=== PATIENT | female | born 1955 | race Caucasian/White ===

== ENCOUNTER 2017-05-14 07:15 | Emergency (ER) | payer OTHER ==
[2017-05-14] MEDS ORDERED: ENALAPRILAT 1.25 MG/ML VIAL IV ONE (08:08)
[2017-05-14 08:12] LABS: Potassium 3.7 mEq/L (3.6-5.0)
[2017-05-14 08:23] LABS: Absolute Monocytes 0.4 K/uL (0.1-1.3); Absolute Neutrophil 4.1 K/uL (1.8-8.0); Basophils % 0.6 % (0-1.3); Eosinophils % 2.4 % (0-4.4); Hematocrit 40.8 % (36.0-45.0); Lymphocytes % 38.7 % (15.3-44.8); MCH 30.4 pg (27.0-35.0); MCV 88.8 fL (80-100); MPV 7.5 fL (7.6-11.3); Monocytes % 5.8 % (3.3-12.3)
--- NOTE | 2017-05-14 08:48 | EKG ---
Test Date: 2017-05-14 Test Time: 07:39:10 Software Licensing Specialist: WILLIAN MEASUREMENT RESULTS: Intervals: Rate: 71 AR: 144 QRSD: 72 QT: 414 QTc: 449 [place]: P: 80 AR: 144 QRS: 62 T: 35 INTERPRETIVE STATEMENTS: Normal sinus rhythm Normal ECG Compared to ECG 03/02/2014 17:15:30 Sinus bradycardia no longer present Electronically Signed On 05-14-17 08:48:22 CDT by Maximus Houser
--- NOTE | 2017-05-14 09:05 | RAD REPORT ---
EXAM DESCRIPTION: RAD - Chest Pa And Lat (2 Views) - 05/14/2017 8:28 am CLINICAL HISTORY: Progressive chest pain COMPARISON: Rib series March 2014, portable chest April 2009 TECHNIQUE: PA and lateral views of the chest were obtained. FINDINGS: The lungs are fibrotic without an acute mass, infiltrate or failure. There is minimal prog ression of the fibrosis since 2009. Apical thickening is present and stable. Heart size is normal a nd central vasculature is within normal limits. No pleural effusion or pneumothorax seen. Osteopeni c changes are present. Kyphosis is slightly accentuated but no compression fracture seen. No aortic a bnormality. IMPRESSION: Interstitial fibrotic changes are present, mildly progressive from 2009, with no focal m ass, consolidation or failure. Osteopenic and degenerative bony change with no acute finding suspected.
--- NOTE | 2017-05-14 09:26 | RAD REPORT ---
EXAM DESCRIPTION: CT - Thorax W/ Con - 05/14/2017 9:11 am CLINICAL HISTORY: Worsening chest pain, breast augmentation COMPARISON: CT imaging April 2009, chest examination May 14, 2017. TECHNIQUE: Dynamically enhanced 5 mm thick images of the chest were obtained during administration o f 100 mL non-ionic IV contrast. All CT scans are performed using dose optimization technique as appropriate and may include automated exposure control or mA/KV adjustment according to patient size. FINDINGS: Mild apical scarring changes are present similar to the prior study. No infiltrate or mass of the lung parenchyma. No interstitial thickening or edema seen as an acute process. Scarring godinez es are present in both posterior gutters. No pleural thickening or pleural effusion. No pneumothorax. No chest wall mass or abnormal axillary lymphadenopathy. No abnormal mediastinal or hilar mass or lymphadenopathy seen. Ascending thoracic aorta is 4.1 cm in diameter. This is not substantially different from 2010. No acute aortic finding identifiable on this study. No acute finding of the great vessel origins off of the aortic arch. Pulmonary artery show no suspicious findings. Bilateral breast augmentation in place with no suspicious finding compared to prior imaging. IMPRESSION: No mass, infiltrate or acute lung parenchymal process. Bilateral apex and lung base scar ring changes are present. Ascending aorta is dilated at 4.1 cm but no acute component seen and no measurable change in size sin ce April 2009.
--- NOTE | 2017-05-14 09:39 | ER ---
Nurse's Notes [facility] Name: Suzie Houser Age: 61 yrs Sex: Female : 1955 Arrival Date: 05/14/2017 Time: 07:17 Bed 5 Private MD: Diagnosis: Chest pain on breathing;Essential (primary) hypertension Presentation: 05/14 07:26 Presenting complaint: Patient states: chest pain that has been worsening over the past ss week. Transition of care: patient was not received from another setting of care. Onset of symptoms was May 07, 2017. Care prior to arrival: None. 07:26 Method Of Arrival: Ambulatory ss 07:26 Acuity: PHANI 3 ss Historical: - Allergies: 07:29 No Known Allergies; ss - Home Meds: : aspirin 81 mg Oral TbEC 1 tab once daily [Active]; ss - PMHx: 07:29 Hypertension; High Cholesterol; aortic aneurysm; ss - PSHx: 07:29 breast augmentation; Hysterectomy; back sx; Appendectomy; ss - Immunization history:: Adult Immunizations unknown. - Social history:: Smoking status: Patient uses tobacco products, smokes one-half pack cigarettes per day. Screenin:49 Abuse screen: Denies threats or abuse. Denies injuries from another. Nutritional lk1 screening: No deficits noted. Tuberculosis screening: No symptoms or risk factors identified. Fall Risk None identified. Assessment: 07:25 General: Appears in no apparent distress. Behavior is calm, cooperative, appropriate lk1 for age. Pain: Complains of pain in mid-sternal area Pain radiates to anterior aspect of left shoulder Pain currently is 10 out of 10 on a pain scale. Quality of pain is described as aching, Pain began 8 days ago Aggravated by exercise, increased activity. Neuro: Level of Consciousness is awake, alert, obeys commands, Oriented to person, place, time, situation, Gait is steady, Speech is normal, Facial symmetry appears normal, Pupils are PERRLA. Cardiovascular: Heart tones S1 S2 present Capillary refill is brisk Patient's skin is warm and dry. Respiratory: Airway is patent Breath sounds are clear bilaterally. GI: Abdomen is flat, non-distended, Bowel sounds present X 4 quads. : No signs and/or symptoms were reported regarding the genitourinary system. EENT: No signs and/or symptoms were reported regarding the EENT system. 09:03 Reassessment: Patient appears in no apparent distress at this time. Patient and/or hb family updated on plan of care and expected duration. Pain level reassessed. Patient is alert, oriented x 3, equal unlabored respirations, skin warm/dry/pink. Vital Signs: 07:29 BP 198 / 115; Pulse 78; Resp 18; Pulse Ox 99% on R/A; Weight 45.36 kg; Height 5 ft. 5 ss in. (165.10 cm); Pain 9/10; 07:53 BP 187 / 110; Pulse 66; Resp 18; Temp 98.4(O); Pulse Ox 99% on R/A; Pain 10/10; lk1 08:15 BP 168 / 107; Pulse 59; Resp 16; Pulse Ox 98% on R/A; lk1 09:01 BP 146 / 94; Pulse 55; Resp 16; Pulse Ox 98% on R/A; lk1 07:29 Body Mass Index 16.64 (45.36 kg, 165.10 cm) ED Course: 07:17 Patient arrived in ED. as 07:19 Jesús Christianson MD is Attending Physician. gs 07:28 Triage completed. ss 07:29 Arm band placed on right wrist. ss 07:30 Maru Flores, CUBA is Primary Nurse. lk1 07:30 Inserted saline lock: 20 gauge in right antecubital area, using aseptic technique. lk1 Blood collected. Patient maintains SpO2 saturation greater than 95% on room air. 07:48 EKG done, by formula technician. reviewed by Jesús Christianson MD. tc 07:51 Patient has correct armband on for positive identification. Placed in gown. Bed in low lk1 position. Call light in reach. Side rails up X 1. campus monitor on. Pulse ox on. NIBP on. 08:20 Patient moved to radiology via wheelchair. kw1 08:24 X-ray completed. Patient tolerated procedure well. Patient moved back from radiology. kw1 08:28 XRAY Chest Pa And Lat (2 Views) In Process Unspecified. EDMS 09:09 CT completed. Patient tolerated procedure well. Patient moved to CT via wheelchair. jg1 Patient moved back from CT. 09:10 CT Chest W/ Con In Process Unspecified. EDMS 10:07 No provider procedures requiring assistance completed. IV discontinued, intact, hb bleeding controlled, No redness/swelling at site. Pressure dressing applied. Administered Medications: 07:45 Drug: Enalaprilat 1.25 mg Route: IV; Rate: bolus; Site: right antecubital; hb Outcome: 09:38 Discharge ordered by . 10:07 Discharged to home ambulatory. hb 10:07 Condition: stable 10:07 Discharge instructions given to patient, Instructed on discharge instructions, follow up and referral plans. medication usage, Demonstrated understanding of instructions, follow-up care, medications. 10:08 Patient left the ED. hb Signatures: Dispatcher [employer] EDMS Hillary Hammonds Amelia as Smirch, Shelby, RN RN Oksana Feldman, boat tender EKG [facility] Maru Flores RN RN lk1 Laura Jones RN RN Jesús Christianson MD MD gs Wilhelm, Rachel kw1 Corrections: (The following items were deleted from the chart) 09:05 09:02 BP 97 / 73; Pulse 90bpm; Resp 18bpm; Pulse Ox 100% RA; hb hb
--- NOTE | 2017-05-14 09:39 | EDPHYS ---
Physician Documentation [facility] Name: Suzie Houser Age: 61 yrs Sex: Female : 1955 Arrival Date: 05/14/2017 Time: 07:17 Bed 5 Private MD: ED Physician Jesús Christianson HPI: 05/14 08:31 This 61 yrs old Female presents to ER via Ambulatory with complaints of Chest gs Pain. 08:31 The patient or guardian reports chest pain that is located primarily in the substernal gs area. Onset: 1 week(s) ago. The pain does not radiate. Associated signs and symptoms: Pertinent negatives: diaphoresis, shortness of breath. The chest pain is described as dull. Duration: The patient or guardian reports a single episode, that is still ongoing. Modifying factors: the symptoms are aggravated by movement, twisting torso, hugging and bra. Historical: - Allergies: 07:29 No Known Allergies; ss - Home Meds: 07:29 aspirin 81 mg Oral TbEC 1 tab once daily [Active]; ss - PMHx: 07:29 Hypertension; High Cholesterol; aortic aneurysm; ss - PSHx: 07:29 breast augmentation; Hysterectomy; back sx; Appendectomy; ss - Immunization history:: Adult Immunizations unknown. - Social history:: Smoking status: Patient uses tobacco products, smokes one-half pack cigarettes per day. ROS: 08:31 All other systems are negative. gs Exam: 08:31 Head/Face: Normocephalic, atraumatic. Eyes: Pupils equal round and reactive to light, gs extra-ocular motions intact. Lids and lashes normal. Conjunctiva and sclera are non-icteric and not injected. Cornea within normal limits. Periorbital areas with no swelling, redness, or edema. ENT: Nares patent. No nasal discharge, no septal abnormalities noted. Tympanic membranes are normal and external auditory canals are clear. Oropharynx with no redness, swelling, or masses, exudates, or evidence of obstruction, uvula midline. Mucous membranes moist. Neck: Trachea midline, no thyromegaly or masses palpated, and no cervical lymphadenopathy. Supple, full range of motion without nuchal rigidity, or vertebral point tenderness. No Meningismus. Chest/axilla: Normal chest wall appearance and motion. Nontender with no deformity. No lesions are appreciated. Cardiovascular: Regular rate and rhythm with a normal S1 and S2. No gallops, murmurs, or rubs. Normal PMI, no JVD. No pulse deficits. Respiratory: Lungs have equal breath sounds bilaterally, clear to auscultation and percussion. No rales, rhonchi or wheezes noted. No increased work of breathing, no retractions or nasal flaring. Abdomen/GI: Soft, non-tender, with normal bowel sounds. No distension or tympany. No guarding or rebound. No evidence of tenderness throughout. Back: No spinal tenderness. No costovertebral tenderness. Full range of motion. Skin: Warm, dry with normal turgor. Normal color with no rashes, no lesions, and no evidence of cellulitis. MS/ Extremity: Pulses equal, no cyanosis. Neurovascular intact. Full, normal range of motion. Neuro: Awake and alert, GCS 15, oriented to person, place, time, and situation. Cranial nerves II-XII grossly intact. Motor strength 5/5 in all extremities. Sensory grossly intact. Cerebellar exam normal. Normal gait. 08:31 Constitutional: The patient appears alert, awake. 08:31 ECG was reviewed by the Attending Physician. Vital Signs: 07:29 BP 198 / 115; Pulse 78; Resp 18; Pulse Ox 99% on R/A; Weight 45.36 kg; Height 5 ft. 5 ss in. (165.10 cm); Pain 9/10; 07:53 BP 187 / 110; Pulse 66; Resp 18; Temp 98.4(O); Pulse Ox 99% on R/A; Pain 10/10; lk1 08:15 BP 168 / 107; Pulse 59; Resp 16; Pulse Ox 98% on R/A; lk1 09:01 BP 146 / 94; Pulse 55; Resp 16; Pulse Ox 98% on R/A; lk1 07:29 Body Mass Index 16.64 (45.36 kg, 165.10 cm) ss MDM: 07:29 Patient medically screened. gs 08:31 Differential diagnosis: abnormal EKG, chest wall pain, pneumonia. Data reviewed: vital gs signs, nurses notes. ED course: says off meds for bp encouraged her to restart. 09:38 Differential diagnosis: thoracic aortic disection. Response to treatment: the patient's gs symptoms have markedly improved after treatment, the patient's symptoms have resolved after treatment. 05/14 07:41 Order name: Basic Metabolic Panel; Complete Time: 08:30 gs 05/14 07:41 Order name: CBC with Diff; Complete Time: 08:30 gs 05/14 07:41 Order name: Troponin (emerg Dept Use Only); Complete Time: 08:30 gs 05/14 07:41 Order name: XRAY Chest Pa And Lat (2 Views); Complete Time: 09:32 gs 05/14 08:38 Order name: CT Chest W/ Con; Complete Time: 09:32 gs 05/14 07:41 Order name: EKG; Complete Time: 07:41 gs 05/14 07:41 Order name: Cardiac monitoring; Complete Time: 07:52 gs 05/14 07:41 Order name: EKG - Nurse/Tech; Complete Time: 07:52 gs 05/14 07:41 Order name: IV Saline Lock; Complete Time: 07:53 gs 05/14 07:41 Order name: Labs collected and sent; Complete Time: 07:53 gs 05/14 07:41 Order name: O2 Per Protocol; Complete Time: 07:53 gs 05/14 07:41 Order name: O2 Sat Monitoring; Complete Time: 07:53 gs EC:31 Rate is 71 beats/min. Rhythm is regular. AL interval is normal. QRS interval is normal. gs T waves are Normal. No ST changes noted. Clinical impression: Abnormal EKG without significant change. Interpreted by me. Administered Medications: 07:45 Drug: Enalaprilat 1.25 mg Route: IV; Rate: bolus; Site: right antecubital; Disposition: 05/14/17 09:38 Discharged to Home. Impression: Chest pain on breathing, Essential (primary) hypertension. - Condition is Stable. - Discharge Instructions: Nonspecific Chest Pain, Hypertension. - Medication Reconciliation Form, Thank You Letter, Antibiotic Education, Prescription Opioid Use form. - Follow up: Private Physician; When: 2 - 3 days; Reason: Re-evaluation by your physician. Signatures: Dispatcher [employer] Kitty Huerta RN RN Laura Jones RN RN Jesús Christianson MD MD
[2017-05-14 10:17] VITALS: TEMP 98.4
[2017-05-14 10:18] VITALS: O2SAT 98
[2017-05-14 10:19] VITALS: BP 146/94
== END 2017-05-14 10:08 | disposition home or self-care (01) ==
LOC: ER 07:15
DX: I10 Essential (primary) hypertension (principal); F17.210 Nicotine dependence, cigarettes, uncomplicated; Z79.82 Long term (current) use of aspirin
CPT/HCPCS: 36415; 71046; 71260; 80048; 84484; 85025; 93005; 96374; 99285; Q9967

== ENCOUNTER 2017-09-03 16:25 | Emergency (ER) | payer OTHER ==
--- NOTE | 2017-09-03 17:27 | RAD REPORT ---
EXAM DESCRIPTION: RAD - Ankle Left 3 View - 09/03/2017 5:21 pm CLINICAL HISTORY: PAIN Fall COMPARISON: No comparisons FINDINGS: The bones are mildly demineralized. No acute fracture or dislocation is seen.
--- NOTE | 2017-09-03 17:27 | RAD REPORT ---
EXAM DESCRIPTION: RAD - Pelvis - 09/03/2017 5:21 pm CLINICAL HISTORY: PAIN Fall COMPARISON: No comparisons FINDINGS: The bones are mildly demineralized. No acute fracture, dislocation or evidence of AVN is s een. If pain persists or the patient has difficulty with weight-bearing, followup MR imaging may be c onsidered for further assessment.
[2017-09-03] MEDS ORDERED: HYDROCODONE/APAP 5/325 MG TAB ONE (17:55)
--- NOTE | 2017-09-03 18:46 | EDPHYS ---
Physician Documentation [facility] Name: Suzie Houser Age: 61 yrs Sex: Female : 1955 Arrival Date: 09/03/2017 Time: 16:26 Bed 13 Private MD: Fortunato Pereira ED Physician Jayant Rodriguez HPI: 09/03 18:00 This 61 yrs old Female presents to ER via Ambulatory with complaints of Hip pm1 Pain. 18:00 The patient or guardian reports pain. that occurred at home, sustained from a fall, pm1 There is no obvious deformity, The patient is able to self ambulate. The patient is able to bear their full body weight. There is no radiation of the patient's discomfort. The complaints affect the right iliac crest and left foot. Onset: The symptoms/episode began/occurred 2 day(s) ago. Modifying factors: The symptoms are alleviated by nothing, the symptoms are aggravated by touching area and walking on left foot. Associated signs and symptoms: Loss of consciousness: the patient experienced no loss of consciousness, Pertinent negatives: No head injury, headache, neck pain. Severity of symptoms: in the emergency department the symptoms are unchanged. Patient was drinking too much and fell on her left side. The same night she rolled off the bed. Patient presenting with pain to arch of left foot and lateral aspect of left foot and right iliac crest. Historical: - Allergies: 16:44 Codeine; hb - Home Meds: 16:44 aspirin 81 mg Oral TbEC 1 tab once daily [Active]; hb - PMHx: 16:44 aortic aneurysm; High Cholesterol; Hypertension; hb - PSHx: 16:44 breast augmentation; Hysterectomy; back sx; Appendectomy; hb - Immunization history:: Adult Immunizations up to date. - Social history:: Smoking status: Patient uses tobacco products, denies chronic smoking, but will smoke occasionally. - Ebola Screening: : No symptoms or risks identified at this time. ROS: 18:00 Constitutional: Negative for fever, chills, and weight loss, Eyes: Negative for injury, pm1 pain, redness, and discharge, ENT: Negative for injury, pain, and discharge, Neck: Negative for injury, pain, and swelling, Cardiovascular: Negative for chest pain, palpitations, and edema, Respiratory: Negative for shortness of breath, cough, wheezing, and pleuritic chest pain, Abdomen/GI: Negative for abdominal pain, nausea, vomiting, diarrhea, and constipation, Back: Negative for injury and pain. 18:00 Skin: Negative for injury, rash, and discoloration, Neuro: Negative for headache, weakness, numbness, tingling, and seizure. 18:00 MS/extremity: Positive for pain, of the left foot and left hip. Exam: 18:00 Constitutional: This is a well developed, well nourished patient who is awake, alert, pm1 and in no acute distress. Head/Face: Normocephalic, atraumatic. Eyes: Pupils equal round and reactive to light, extra-ocular motions intact. Lids and lashes normal. Conjunctiva and sclera are non-icteric and not injected. Cornea within normal limits. Periorbital areas with no swelling, redness, or edema. ENT: Nares patent. No nasal discharge, no septal abnormalities noted. Tympanic membranes are normal and external auditory canals are clear. Oropharynx with no redness, swelling, or masses, exudates, or evidence of obstruction, uvula midline. Mucous membranes moist. Neck: Trachea midline, no thyromegaly or masses palpated, and no cervical lymphadenopathy. Supple, full range of motion without nuchal rigidity, or vertebral point tenderness. No Meningismus. Chest/axilla: Normal chest wall appearance and motion. Nontender with no deformity. No lesions are appreciated. Cardiovascular: Regular rate and rhythm with a normal S1 and S2. No gallops, murmurs, or rubs. Normal PMI, no JVD. No pulse deficits. Respiratory: Lungs have equal breath sounds bilaterally, clear to auscultation and percussion. No rales, rhonchi or wheezes noted. No increased work of breathing, no retractions or nasal flaring. Abdomen/GI: Soft, non-tender, with normal bowel sounds. No distension or tympany. No guarding or rebound. No evidence of tenderness throughout. Back: No spinal tenderness. No costovertebral tenderness. Full range of motion. Skin: Warm, dry with normal turgor. Normal color with no rashes, no lesions, and no evidence of cellulitis. 18:00 Musculoskeletal/extremity: Extremities: grossly normal except: noted in the lateral side of left foot and arch of left foot: tenderness, noted in the right iliac crest: tenderness, no evidence of tenderness or decreased ROM to right or left hip joint. Vital Signs: 16:43 BP 139 / 99; Pulse 100; Resp 18; Temp 97.4; Pulse Ox 100% on R/A; Weight 42.64 kg; hb Height 5 ft. 5 in. (165.10 cm); Pain 9/10; 18:26 BP 123 / 89; Pulse 61; Resp 17; Pulse Ox 98% on R/A; mb3 16:43 Body Mass Index 15.64 (42.64 kg, 165.10 cm) hb MDM: 17:27 Patient medically screened. pm1 18:44 Data reviewed: vital signs. Data interpreted: Pulse oximetry: on room air is 98 %. pm1 Interpretation: normal. Counseling: I had a detailed discussion with the patient and/or guardian regarding: the historical points, exam findings, and any diagnostic results supporting the discharge/admit diagnosis, radiology results, the need for outpatient follow up, to return to the emergency department if symptoms worsen or persist or if there are any questions or concerns that arise at home. 09/03 16:46 Order name: Pelvis XRAY; Complete Time: 17:36 09/03 16:46 Order name: Ankle Left 3 View XRAY; Complete Time: 17:36 hb 09/03 17:42 Order name: Foot Left 3 View XRAY; Complete Time: 20:15 pm1 Administered Medications: 17:53 Drug: Scotts 5 mg-325 mg 1 tabs Route: PO; mb3 19:02 Follow up: Response: No adverse reaction mb3 Disposition: 09/04 09:34 Co-signature as Attending Physician, Jayant Rodriguez MD I agree with the assessment and saima plan of care. Disposition: 09/03/17 18:46 Discharged to Home. Impression: Unspecified sprain of left foot, Contusion of hip. - Condition is Stable. - Discharge Instructions: Contusion, Foot Sprain. - Prescriptions for Tramadol 50 mg Oral Tablet - take 1 tablet by ORAL route every 8 hours as needed; 12 tablet. - Medication Reconciliation Form, Thank You Letter, Prescription Opioid Use, Work release form form. - Follow up: Emergency Department; When: As needed; Reason: Worsening of condition. Follow up: Private Physician; When: 2 - 3 days; Reason: Recheck today's complaints, Continuance of care, Re-evaluation by your physician. - Problem is new. - Symptoms have improved. Signatures: Dispatcher [employer] EDMS Jayant Rodriguez MD MD cha Marinas, Patrick, STILL WORKER HELPER STILL WORKER HELPER pm1 Laura Jones, RN RN Jean Marie Richtre RN RN mb3 Corrections: (The following items were deleted from the chart) 09/03 19:03 18:46 09/03/2017 18:46 Discharged to Home. Impression: Unspecified sprain of left foot; mb3 Contusion of hip. Condition is Stable. Forms are Medication Reconciliation Form, Thank You Letter, Antibiotic Education, Prescription Opioid Use. Follow up: Emergency Department; When: As needed; Reason: Worsening of condition. Follow up: Private Physician; When: 2 - 3 days; Reason: Recheck today's complaints, Continuance of care, Re-evaluation by your physician. Problem is new. Symptoms have improved. pm1
--- NOTE | 2017-09-03 18:46 | ER ---
Nurse's Notes [facility] Name: Suzie Houser Age: 61 yrs Sex: Female : 1955 Arrival Date: 09/03/2017 Time: 16:26 Bed 13 Private MD: Fortunato Pereira Diagnosis: Unspecified sprain of left foot;Contusion of hip Presentation: 09/03 16:40 Presenting complaint: Patient states: Right hip and left ankle pain after fall from hb standing 2 days ago. Pt report she had too many margaritas and tripped and landed on her right side. Negative LOC. Denies other injuries. Ambulated to triage with steady gait. Transition of care: patient was not received from another setting of care. Onset of symptoms was August 31, 2017. Risk Assessment: Do you want to hurt yourself or someone else? Patient reports no desire to harm self or others. Initial Sepsis Screen: Does the patient meet any 2 criteria? No. Patient's initial sepsis screen is negative. Does the patient have a suspected source of infection? No. Patient's initial sepsis screen is negative. Care prior to arrival:. Care prior to arrival: None. 16:40 Method Of Arrival: Ambulatory hb 16:40 Acuity: PHANI 4 hb Triage Assessment: 19:03 General: Behavior is calm, cooperative, appropriate for age. mb3 Historical: - Allergies: 16:44 Codeine; hb - Home Meds: 16:44 aspirin 81 mg Oral TbEC 1 tab once daily [Active]; hb - PMHx: 16:44 aortic aneurysm; High Cholesterol; Hypertension; hb - PSHx: 16:44 breast augmentation; Hysterectomy; back sx; Appendectomy; hb - Immunization history:: Adult Immunizations up to date. - Social history:: Smoking status: Patient uses tobacco products, denies chronic smoking, but will smoke occasionally. - Ebola Screening: : No symptoms or risks identified at this time. Screenin:00 Abuse screen: Denies threats or abuse. Nutritional screening: No deficits noted. mb3 Tuberculosis screening: No symptoms or risk factors identified. Fall Risk Fall in past 12 months (25 points). Secondary diagnosis (15 points) No IV (0 pts). Ambulatory Aid- Furniture (30 pts.). Gait- Weak (10 pts.). Mental Status- Oriented to own ability (0 pts). Total Farris Fall Scale indicates High Risk Score (45 or more points). Fall prevention measures have been instituted. Side Rails Up X 2 Placed Close to Nursing Station Frequent Obs/Assessments Occuring Family Present and informed to notify staff if the need to leave the bedside As available patient and family educated on Fall Prevention Program and Strategies. Assessment: 17:54 General: Appears distressed, uncomfortable. Pain: Complains of pain in left lateral mb3 ankle, left medial ankle and back. Neuro: No deficits noted. Cardiovascular: No deficits noted. Respiratory: No deficits noted. Airway is patent Respiratory effort is even, unlabored, Respiratory pattern is regular, symmetrical, Breath sounds are clear bilaterally. GI: No deficits noted. Abdomen is flat, Bowel sounds present X 4 quads. Abd is soft and non tender X 4 quads. : No signs and/or symptoms were reported regarding the genitourinary system. EENT: No signs and/or symptoms were reported regarding the EENT system. Derm: No signs and/or symptoms reported regarding the dermatologic system. Musculoskeletal: Reports lower back pain, and left ankle pain since falling this weekend. 18:28 Reassessment: Patient and/or family updated on plan of care and expected duration. Pain mb3 level reassessed. Patient is alert, oriented x 3, equal unlabored respirations, skin warm/dry/pink. Patient states feeling better. Vital Signs: 16:43 BP 139 / 99; Pulse 100; Resp 18; Temp 97.4; Pulse Ox 100% on R/A; Weight 42.64 kg; hb Height 5 ft. 5 in. (165.10 cm); Pain 9/10; 18:26 BP 123 / 89; Pulse 61; Resp 17; Pulse Ox 98% on R/A; mb3 16:43 Body Mass Index 15.64 (42.64 kg, 165.10 cm) hb ED Course: 16:26 Patient arrived in ED. as 16:27 Fortunato Pereira MD is Private Physician. as 16:43 Triage completed. hb 16:44 Arm band placed on left wrist. hb 17:19 X-ray completed. Patient tolerated procedure well. Patient moved back from radiology. sw 17:19 Jean Marie Richter, RN is Primary Nurse. mb3 17:20 Pelvis XRAY In Process Unspecified. EDMS 17:20 Ankle Left 3 View XRAY In Process Unspecified. EDMS 17:27 Davion Pastrana NP is PHCP. pm1 17:27 Jayant Rodriguez MD is Attending Physician. pm1 17:57 X-ray completed. Portable x-ray completed in exam room. Patient tolerated procedure bb2 well. 17:58 Foot Left 3 View XRAY In Process Unspecified. EDMS 19:03 Patient has correct armband on for positive identification. mb3 19:03 No provider procedures requiring assistance completed. Patient did not have IV access mb3 during this emergency room visit. Administered Medications: 17:53 Drug: [place] 5 mg-325 mg 1 tabs Route: PO; mb3 19:02 Follow up: Response: No adverse reaction mb3 Outcome: 18:46 Discharge ordered by . pm1 19:02 Discharged to home ambulatory, with family. mb3 19:02 Condition: stable 19:02 Discharge instructions given to patient, Instructed on discharge instructions, follow up and referral plans. Demonstrated understanding of instructions, follow-up care. 19:03 Patient left the ED. mb3 Signatures: Dispatcher [employer] EDMS Emi Knox Shannon Davion Pastrana, [facility] pm1 Laura Jones, RN RN Eli Markham bb2 Jean Marie Richter, RN RN mb3
--- NOTE | 2017-09-03 19:02 | RAD REPORT ---
EXAM DESCRIPTION: RAD - Foot Left 3 View - 09/03/2017 5:59 pm CLINICAL HISTORY: Left Foot pain status post fall FINDINGS: No fracture or dislocation is seen. The bones are osteoporotic
[2017-09-03 20:08] VITALS: TEMP 97.4
[2017-09-03 20:09] VITALS: BP 123/89; O2SAT 98
== END 2017-09-03 19:03 | disposition home or self-care (01) ==
LOC: ER 16:25
DX: S93.602A Unspecified sprain of left foot, initial encounter (principal); S70.01XA Contusion of right hip, initial encounter; F17.200 Nicotine dependence, unspecified, uncomplicated; I10 Essential (primary) hypertension; W19.XXXA Unspecified fall, initial encounter; Y93.89 Activity, other specified; Y92.89 Other specified places as the place of occurrence of the external cause; Y99.9 Unspecified external cause status; Z88.6 Allergy status to analgesic agent
CPT/HCPCS: 72170; 99283

== ENCOUNTER 2019-12-14 11:01 | Emergency (ER) | payer OTHER ==
--- NOTE | 2019-12-14 12:40 | ER ---
Nurse's Notes [facility] Name: Suzie Houser Age: 64 yrs Sex: Female : 1955 Arrival Date: 12/14/2019 Time: 11:08 Bed 5 Private MD: Diagnosis: Pain in right wrist;Pain in right elbow;Hypertensive heart disease Presentation: 12/13 11:28 Chief complaint: Patient states: lost balance stepping down from living room to dining iw room, fell onto right hand/wrist, happened Sunday night. Coronavirus screen: At this time, the client does not indicate any symptoms associated with coronavirus-19. Ebola Screen: Patient negative for fever greater than or equal to 101.5 degrees Fahrenheit, and additional compatible Ebola Virus Disease symptoms Patient denies exposure to infectious person. Patient denies travel to an Ebola-affected area in the 21 days before illness onset. Initial Sepsis Screen: Does the patient meet any 2 criteria? No. Patient's initial sepsis screen is negative. Does the patient have a suspected source of infection? No. Patient's initial sepsis screen is negative. Risk Assessment: Do you want to hurt yourself or someone else? Patient reports no desire to harm self or others. Onset of symptoms was December 09, 2019. 11:28 Method Of Arrival: Ambulatory iw 11:28 Acuity: PHANI 4 iw Historical: - Allergies: 11:31 Codeine; iw - Home Meds: 11:31 aspirin 81 mg Oral chew 1 tab once daily [Active]; iw - PMHx: 11:31 aortic aneurysm; High Cholesterol; Hypertension; iw - PSHx: 11:31 breast augmentation; back sx; Hysterectomy; Appendectomy; iw - Immunization history:: Adult Immunizations up to date. - Social history:: Smoking status: Patient reports the use of cigarette tobacco products, smokes one-half pack cigarettes per day. Screenin:12 Abuse screen: Denies threats or abuse. Denies injuries from another. Nutritional ss screening: No deficits noted. Tuberculosis screening: Never had TB. Fall Risk None identified. Assessment: 12:12 General: Appears in no apparent distress. comfortable, Behavior is calm, cooperative, ss Denies fever, feeling ill, fatigue, chills. Pain: Complains of pain in R wrist and elbow Pain currently is 6 out of 10 on a pain scale. Quality of pain is described as aching, Pain began 5 days ago Is continuous. Neuro: Level of Consciousness is awake, alert, obeys commands, Oriented to person, place, time, situation, Moves all extremities. Full function. Cardiovascular: Pulses are palpable in right radial artery and left radial artery. Respiratory: Airway is patent Respiratory effort is even, unlabored, Respiratory pattern is regular, symmetrical. EENT: Oral mucosa is moist. Derm: Skin is pink, warm \T\ dry. normal. Musculoskeletal: Circulation, motion, and sensation intact. Range of motion: intact in all extremities, Swelling absent. Vital Signs: 11:28 BP 182 / 110; Pulse 74; Resp 16; Temp 98.7; Pulse Ox 99% on R/A; Weight 44.45 kg; iw Height 5 ft. 5 in. (165.10 cm); Pain 710; 11:28 Body Mass Index 16.31 (44.45 kg, 165.10 cm) iw ED Course: 11:08 Patient arrived in ED. ag5 11:30 Triage completed. iw 11:32 Arm band placed on. iw 11:35 Jayant Kulkarni PA is PHCP. cp 11:35 Nolan De La Torre MD is Attending Physician. cp 12:10 Kitty Wright RN is Primary Nurse. ss 12:12 Patient has correct armband on for positive identification. Bed in low position. Call ss light in reach. Side rails up X 1. Warm blanket given. 12:16 XRAY Wrist RIGHT 3 view In Process Unspecified. EDMS 12:16 XRAY Elbow RIGHT 3 view In Process Unspecified. EDMS 12:39 Carlos Alberto Fortune MD is Referral Physician. cp 12:54 No provider procedures requiring assistance completed. Patient did not have IV access ss during this emergency room visit. Velcro wrist splint applied to right wrist. Sling applied to right arm. Administered Medications: No medications were administered Outcome: 12:40 Discharge ordered by . cp 12:54 Discharged to home ambulatory. ss 12:54 Condition: good 12:54 Discharge instructions given to patient, family, Instructed on discharge instructions, follow up and referral plans. medication usage, Demonstrated understanding of instructions, follow-up care, medications, Prescriptions given X 2. 12:55 Patient left the ED. ss Signatures: Dispatcher [employer] Kassy Bunn, RN RN Kitty Albright RN RN ss Jayant Kulkarni PA PA cp [place], [facility]
--- NOTE | 2019-12-14 12:40 | EDPHYS ---
Physician Documentation [facility] Name: Suzie Houser Age: 64 yrs Sex: Female : 1955 Arrival Date: 12/14/2019 Time: 11:08 Bed 5 Private MD: ED Physician Nolan De La Torre HPI: 12/13 11:45 This 64 yrs old Female presents to ER via Ambulatory with complaints of Wrist cp Injury, Arm Injury. 11:45 The patient or guardian reports injury, pain, tenderness. cp 11:45 The complaints affect the right wrist diffusely. Context: resulted from a fall, on an cp outstretched hand. Onset: The symptoms/episode began/occurred 5 day(s) ago. Associated signs and symptoms: Pertinent negatives: cyanosis distally, decreased sensation distally. Historical: - Allergies: 11:31 Codeine; iw - Home Meds: 11:31 aspirin 81 mg Oral chew 1 tab once daily [Active]; iw - PMHx: 11:31 aortic aneurysm; High Cholesterol; Hypertension; iw - PSHx: 11:31 breast augmentation; back sx; Hysterectomy; Appendectomy; iw - Immunization history:: Adult Immunizations up to date. - Social history:: Smoking status: Patient reports the use of cigarette tobacco products, smokes one-half pack cigarettes per day. ROS: 11:55 Eyes: Negative for injury, pain, redness, and discharge. cp 11:55 Constitutional: Negative for body aches, chills, fever, poor PO intake. 11:55 Neck: Negative for pain with movement, pain at rest, stiffness. 11:55 Cardiovascular: Negative for chest pain, palpitations. 11:55 Respiratory: Negative for cough, shortness of breath, wheezing. 11:55 Abdomen/GI: Negative for nausea, vomiting, and diarrhea. 11:55 Back: Negative for pain at rest, pain with movement. 11:55 MS/extremity: Positive for pain, of the dorsal side right wrist, Negative for decreased range of motion, paresthesias. 11:55 Skin: Negative for rash. 11:55 Neuro: Negative for altered mental status, headache, weakness. 11:55 All other systems are negative. Exam: 12:00 Constitutional: The patient appears in no acute distress, alert, awake, cp non-diaphoretic, non-toxic, well developed, well nourished. 12:00 Head/Face: Normocephalic, atraumatic. cp 12:00 Eyes: Periorbital structures: appear normal, Conjunctiva: normal, no exudate, no injection, Lids and lashes: appear normal, bilaterally. 12:00 ENT: External ear(s): are unremarkable, Nose: is normal, Mouth: Lips: moist, Oral mucosa: moist, Posterior pharynx: Airway: no evidence of obstruction, patent. 12:00 Neck: C-spine: vertebral tenderness, is not appreciated, crepitus, is not appreciated, ROM/movement: is normal, is supple, without pain, no range of motions limitations. 12:00 Chest/axilla: Inspection: normal, Palpation: is normal, no crepitus, no tenderness. 12:00 Cardiovascular: Rate: normal, Rhythm: regular. 12:00 Respiratory: the patient does not display signs of respiratory distress, Respirations: normal, no use of accessory muscles, no retractions, Breath sounds: are clear throughout. 12:00 Abdomen/GI: Exam negative for discomfort, distension, guarding, Inspection: abdomen appears normal. 12:00 Back: pain, is absent, ROM is normal. 12:00 Musculoskeletal/extremity: Extremities: grossly normal except: noted in the dorsal side of right wrist: pain, tenderness, There is no evidence of decreased ROM, deformity, noted in the right elbow: tenderness, no evidence of decreased ROM, swelling, ROM: limited passive range of motion due to pain, in the right wrist, Perfusion: the extremity is normally perfused throughout, the right arm Sensation intact. 12:00 Neuro: Orientation: to person, place \T\ time. Mentation: is normal, Motor: moves all fours, strength is normal. Vital Signs: 11:28 BP 182 / 110; Pulse 74; Resp 16; Temp 98.7; Pulse Ox 99% on R/A; Weight 44.45 kg; iw Height 5 ft. 5 in. (165.10 cm); Pain 7/10; 11:28 Body Mass Index 16.31 (44.45 kg, 165.10 cm) iw Procedures: 12:50 Splinting: Splint applied to right elbow and right wrist using sling, wrist splint, cp applied by nurse. Examined by me, post splint application: neurovascular intact, Patient tolerated well. MDM: 11:36 Patient medically screened. cp 12:00 Differential diagnosis: dislocation, closed fracture, tendonitis. cp 12:40 Data reviewed: vital signs, nurses notes, radiologic studies, plain films. cp 12:40 Test interpretation: by ED physician or midlevel provider: xrays of right wrist cp negative for fracture and xrays of right elbow negative for fracture. Counseling: I had a detailed discussion with the patient and/or guardian regarding: the historical points, exam findings, and any diagnostic results supporting the discharge/admit diagnosis, the presence of at least one elevated blood pressure reading (>120/80) during this emergency department visit, radiology results, the need for outpatient follow up, a family practitioner, to return to the emergency department if symptoms worsen or persist or if there are any questions or concerns that arise at home. Response to treatment: the patient's symptoms have mildly improved after treatment, and as a result, I will discharge patient. 12/13 11:38 Order name: XRAY Wrist RIGHT 3 view cp 12/13 11:38 Order name: XRAY Elbow RIGHT 3 view cp 12/13 12:33 Order name: Splint - Wrist; Complete Time: 12:53 cp 12/13 12:33 Order name: Sling; Complete Time: 12:53 cp Administered Medications: No medications were administered Disposition: 12/14/19 12:40 Discharged to Home. Impression: Pain in right wrist, Pain in right elbow, Hypertensive heart disease. - Condition is Stable. - Discharge Instructions: Joint Pain, Hypertension, Wrist Pain. - Prescriptions for Ibuprofen 800 mg Oral Tablet - take 1 tablet by ORAL route every 8 hours As needed take with food; 30 tablet. Lisinopril- Hydrochlorothiazide 20-12.5 mg Oral Tablet - take 1 tablet by ORAL route once daily; 20 tablet. - Medication Reconciliation Form, Thank You Letter, Antibiotic Education, Prescription Opioid Use form. - Follow up: Carlos Alberto Fortune MD; When: 2 - 3 days; Reason: Recheck today's complaints. - Problem is new. - Symptoms have improved. Addendum: 12/15/2019 14:52 Co-signature as Attending Physician, Nolan De La Torre MD I agree with the assessment and k plan of care. Signatures: Dispatcher [employer] EDDE Nolan De La Torre MD MD kdr Kassy Benson RN RN iw Kitty Wright RN RN ss Jayant Kulkarni, ANNA PA cp Corrections: (The following items were deleted from the chart) 12/13 12:42 12:40 12/14/2019 12:40 Discharged to Home. Impression: Pain in right wrist; Pain in cp right elbow. Condition is Stable. Forms are Medication Reconciliation Form, Thank You Letter, Antibiotic Education, Prescription Opioid Use. Follow up: Carlos Alberto Fortune; When: 2 - 3 days; Reason: Recheck today's complaints. Problem is new. Symptoms have improved. cp 12:55 12:42 12/14/2019 12:40 Discharged to Home. Impression: Pain in right wrist; Pain in ss right elbow; Hypertensive heart disease. Condition is Stable. Discharge Instructions: Joint Pain, Wrist Pain, Hypertension. Prescriptions for Ibuprofen 800 mg Oral Tablet - take 1 tablet by ORAL route every 8 hours As needed take with food; 30 tablet, Lisinopril-Hydrochlorothiazide 20-12.5 mg Oral Tablet - take 1 tablet by ORAL route once daily; 20 tablet. and Forms are Medication Reconciliation Form, Thank You Letter, Antibiotic Education, Prescription Opioid Use. Follow up: Carlos Alberto Fortune; When: 2 - 3 days; Reason: Recheck today's complaints. Problem is new. Symptoms have improved. cp 12/14 09:10 09:08 This 64 yrs old Female presents to ER via Ambulatory with complaints of cp Wrist Injury, Arm Injury. cp
--- NOTE | 2019-12-14 12:59 | RAD REPORT ---
EXAM DESCRIPTION: RAD - Wrist Right 3 View - 12/14/2019 12:16 pm CLINICAL HISTORY: PAIN COMPARISON: No comparisons FINDINGS: No fracture is identified. There is no dislocation or periosteal reaction noted. Bones briana ear mildly osteopenic. This can be correlated with DEXA study as warranted. No foreign body or other soft tissue abnormality. IMPRESSION: No fracture or acute finding of the right wrist.
--- NOTE | 2019-12-14 13:00 | RAD REPORT ---
EXAM DESCRIPTION: RAD - Elbow Right 3 View - 12/14/2019 12:16 pm CLINICAL HISTORY: PAIN COMPARISON: No comparisons FINDINGS: No fracture is identified and no elevated posterior fat pad. There is no dislocation or pe riosteal reaction noted. No foreign body or other soft tissue abnormality. No other significant findi ng. Bones appear osteopenic. Concerns for osteoporosis can be followed up with DEXA study. IMPRESSION: Negative right elbow examination.
[2019-12-14 13:02] VITALS: BP 182/110; TEMP 98.7; O2SAT 99
== END 2019-12-14 12:55 | disposition home or self-care (01) ==
LOC: ER 11:01
DX: M25.531 Pain in right wrist (principal); M25.521 Pain in right elbow; I11.9 Hypertensive heart disease without heart failure; I10 Essential (primary) hypertension; F17.210 Nicotine dependence, cigarettes, uncomplicated; Z79.82 Long term (current) use of aspirin; Z88.5 Allergy status to narcotic agent; Z98.82 Breast implant status
CPT/HCPCS: 99283

== ENCOUNTER 2020-04-19 08:10 | Emergency (ER) | payer OTHER ==
[2020-04-19 13:17] LABS: Absolute Lymphocytes (CBC) 2.6 K/uL (0.7-4.9); Basophils % 0.8 % (0-1.3); Hematocrit 42.3 % (36.0-45.0); Lymphocytes % 30.8 % (15.3-44.8); MPV 6.6 fL (7.6-11.3)
[2020-04-19] MEDS ORDERED: dexAMETHasone 10 MG/ML VIAL ONE (13:33)
[2020-04-19] MEDS ORDERED: FAMOTIDINE 20 MG/2 ML VIAL IV ONE (13:34)
[2020-04-19] MEDS ORDERED: KETOROLAC 30 MG/ML INJ ONE ×2 (13:34)
[2020-04-19] MEDS ORDERED: NA CHLORIDE 0.9% 1,000 ML ONE (13:34)
[2020-04-19 13:36] LABS: Albumin 3.9 g/dL (3.4-5.0); Bilirubin Total 0.3 mg/dL (0.2-1.0); Potassium 3.9 mmol/L (3.5-5.1); Protein, Total 7.8 g/dL (6.4-8.2)
--- NOTE | 2020-04-19 14:26 | EDPHYS ---
Physician Documentation [facility] Name: Suzie Houser Age: 64 yrs Sex: Female : 1955 Arrival Date: 04/19/2020 Time: 08:15 Bed 20 Private MD: ED Physician Jayant Rodriguez HPI: 04/19 12:52 This 64 yrs old Female presents to ER via Ambulatory with complaints of Back saima Pain. 12:52 The patient presents with pain that is acute, and decreased range of motion, and an saima injury. The symptoms are located in the low back. Onset: The symptoms/episode began/occurred 14 day(s) ago. The pain radiates to the left low back and right low back. Associated signs and symptoms: The patient has no apparent associated signs or symptoms. Modifying factors: The patient symptoms are alleviated by nothing. Severity of symptoms: At their worst the symptoms were mild, moderate, in the emergency department the symptoms are unchanged. The patient has experienced similar episodes in the past, a few times. Historical: - Allergies: 09:04 Codeine; hb - Home Meds: 09:04 aspirin 81 mg Oral chew 1 tab once daily [Active]; hb - PMHx: 09:04 aortic aneurysm; High Cholesterol; Hypertension; hb - PSHx: 09:04 breast augmentation; Hysterectomy; Appendectomy; back sx; hb - Immunization history:: Adult Immunizations up to date. - Social history:: Smoking status: Patient reports the use of cigarette tobacco products, smokes one pack cigarettes per day. - Family history:: not pertinent. ROS: 12:52 Constitutional: Negative for fever, chills, and weight loss, Eyes: Negative for injury, saima pain, redness, and discharge, ENT: Negative for injury, pain, and discharge, Neck: Negative for injury, pain, and swelling, Cardiovascular: Negative for chest pain, palpitations, and edema, Respiratory: Negative for shortness of breath, cough, wheezing, and pleuritic chest pain, Abdomen/GI: Negative for abdominal pain, nausea, vomiting, diarrhea, and constipation, : Negative for injury, bleeding, discharge, and swelling, MS/Extremity: Negative for injury and deformity, Skin: Negative for injury, rash, and discoloration, Neuro: Negative for headache, weakness, numbness, tingling, and seizure, Psych: Negative for depression, anxiety, suicide ideation, homicidal ideation, and hallucinations, Allergy/Immunology: Negative for hives, rash, and allergies, Endocrine: Negative for neck swelling, polydipsia, polyuria, polyphagia, and marked weight changes, Hematologic/Lymphatic: Negative for swollen nodes, abnormal bleeding, and unusual bruising. 12:52 Back: Positive for decreased range of motion, pain at rest, pain with movement, radiated pain, of the low back area and left low back. Exam: 12:52 Constitutional: This is a well developed, well nourished patient who is awake, alert, saima and in no acute distress. Head/Face: Normocephalic, atraumatic. Eyes: Pupils equal round and reactive to light, extra-ocular motions intact. Lids and lashes normal. Conjunctiva and sclera are non-icteric and not injected. Cornea within normal limits. Periorbital areas with no swelling, redness, or edema. ENT: Nares patent. No nasal discharge, no septal abnormalities noted. Tympanic membranes are normal and external auditory canals are clear. Oropharynx with no redness, swelling, or masses, exudates, or evidence of obstruction, uvula midline. Mucous membranes moist. Neck: Trachea midline, no thyromegaly or masses palpated, and no cervical lymphadenopathy. Supple, full range of motion without nuchal rigidity, or vertebral point tenderness. No Meningismus. Chest/axilla: Normal chest wall appearance and motion. Nontender with no deformity. No lesions are appreciated. Cardiovascular: Regular rate and rhythm with a normal S1 and S2. No gallops, murmurs, or rubs. Normal PMI, no JVD. No pulse deficits. Respiratory: Lungs have equal breath sounds bilaterally, clear to auscultation and percussion. No rales, rhonchi or wheezes noted. No increased work of breathing, no retractions or nasal flaring. Abdomen/GI: Soft, non-tender, with normal bowel sounds. No distension or tympany. No guarding or rebound. No evidence of tenderness throughout. Female : Normal external genitalia. Skin: Warm, dry with normal turgor. Normal color with no rashes, no lesions, and no evidence of cellulitis. MS/ Extremity: Pulses equal, no cyanosis. Neurovascular intact. Full, normal range of motion. Neuro: Awake and alert, GCS 15, oriented to person, place, time, and situation. Cranial nerves II-XII grossly intact. Motor strength 5/5 in all extremities. Sensory grossly intact. Cerebellar exam normal. Normal gait. Psych: Awake, alert, with orientation to person, place and time. Behavior, mood, and affect are within normal limits. 12:52 Back: pain, that is mild, that is moderate, ROM is painful, with all movement, normal spinal alignment noted, CVA tenderness, is absent, vertebral tenderness, is not appreciated, muscle spasm, is appreciated in the left low back, left mid back, right mid back and right low back. Vital Signs: 09:02 BP 148 / 71; Pulse 77; Resp 16; Temp 97.2; Pulse Ox 100% on R/A; Pain 10/10; ll1 12:00 BP 161 / 95; Pulse 96; Resp 20; Pulse Ox 100% on R/A; Weight 49 kg; Height 5 ft. 5 in. bw (165.10 cm); 13:00 BP 140 / 93; Pulse 68; Resp 18; Pulse Ox 99% on R/A; hb 14:00 BP 148 / 88; Pulse 67; Resp 19; Pulse Ox 99% on R/A; hb 12:00 Body Mass Index 17.98 (49.00 kg, 165.10 cm) bw MDM: 11:54 Patient medically screened. saima 12:59 Differential diagnosis: Fracture Hydronephrosis Leaking Aortic Aneurysm Osteoarthritis saima ruptured disc, Scoliosis spinal injury, sprain, vertebral fracture. Data reviewed: vital signs, nurses notes, lab test result(s), radiologic studies, CT scan. Data interpreted: telemetry monitor: rate is 96 beats/min, rhythm is regular, Pulse oximetry: on room air is 100 %. Test interpretation: by ED physician or midlevel provider:. Counseling: I had a detailed discussion with the patient and/or guardian regarding: the historical points, exam findings, and any diagnostic results supporting the discharge/admit diagnosis, lab results, radiology results. 04/19 12:51 Order name: CBC with Diff; Complete Time: 14:18 saima 04/19 12:51 Order name: Comprehensive Metabolic Panel; Complete Time: 14:18 saima 04/19 12:51 Order name: CT Lumbar Spine Wo Con saima Administered Medications: 13:26 Drug: Decadron - Dexamethasone 10 mg Route: IVP; Site: left antecubital; bw 13:27 Drug: NS 0.9% 500 ml Route: IV; Rate: bolus; Site: left antecubital; bw 13:27 Drug: TORadol 30 mg Route: IVP; Site: left antecubital; bw 13:27 Drug: Pepcid 20 mg Route: IVP; Site: left antecubital; Disposition: 04/19/20 14:25 Discharged to Home. Impression: Low back pain, Sciatica, Wedge compression fracture of fourth lumbar vertebra - mild anterior. - Condition is Stable. - Discharge Instructions: Back Pain, Adult, Musculoskeletal Pain, Lumbar Fracture, Back Pain, Adult, Yang-vs-Huzy. - Prescriptions for Valium 2 mg Oral Tablet - take 1 tablet by ORAL route every 8 hours As needed; 20 tablet. Medrol (Bebeto) 4 mg Oral Tablets, Dose Pack - take 1 tablet by ORAL route as directed - follow package instructions; 1 packet. Motrin IB 200 mg Oral Tablet - take 2 tablet by ORAL route every 6 hours As needed as needed with food; 40 tablet. - Medication Reconciliation Form, Thank You Letter, Antibiotic Education, Prescription Opioid Use form. - Follow up: Private Physician; When: 2 - 3 days; Reason: Recheck today's complaints, Continuance of care, Re-evaluation by your physician. Follow up: Francisco Javier Yanes MD; When: 2 - 3 days; Reason: Recheck today's complaints, Continuance of care, Re-evaluation by your physician. - Problem is new. - Symptoms have improved. Signatures: Dispatcher [employer] EDJayant Clay MD MD cha Baxter, Heather, RN RN Louise Bell RN RN Corrections: (The following items were deleted from the chart) 14:29 12:51 Urine Dipstick-Ancillary ordered. saima 14:50 14:25 04/19/2020 14:25 Discharged to Home. Impression: Low back pain; Sciatica; Wedge bw compression fracture of fourth lumbar vertebra - mild anterior. Condition is Stable. Forms are Medication Reconciliation Form, Thank You Letter, Antibiotic Education, Prescription Opioid Use. Follow up: Private Physician; When: 2 - 3 days; Reason: Recheck today's complaints, Continuance of care, Re-evaluation by your physician. Follow up: Francisco Javier Yanes; When: 2 - 3 days; Reason: Recheck today's complaints, Continuance of care, Re-evaluation by your physician. Problem is new. Symptoms have improved. saima
--- NOTE | 2020-04-19 14:26 | ER ---
Nurse's Notes [facility] Name: Suzie Houser Age: 64 yrs Sex: Female : 1955 Arrival Date: 04/19/2020 Time: 08:15 Bed 20 Private MD: Diagnosis: Low back pain;Sciatica;Wedge compression fracture of fourth lumbar vertebra-mild anterior Presentation: 04/19 09:02 Chief complaint: Low back pain that radiates to left leg x 2 weeks. Coronavirus screen: hb At this time, the client does not indicate any symptoms associated with coronavirus-19. Ebola Screen: No symptoms or risks identified at this time. Initial Sepsis Screen: Does the patient meet any 2 criteria? No. Patient's initial sepsis screen is negative. Does the patient have a suspected source of infection? No. Patient's initial sepsis screen is negative. Risk Assessment: Do you want to hurt yourself or someone else? Patient reports no desire to harm self or others. Onset of symptoms was April 07, 2020. 09:02 Method Of Arrival: Ambulatory hb 09:02 Acuity: PHANI 3 hb Historical: - Allergies: 09:04 Codeine; hb - Home Meds: 09:04 aspirin 81 mg Oral chew 1 tab once daily [Active]; hb - PMHx: 09:04 aortic aneurysm; High Cholesterol; Hypertension; hb - PSHx: 09:04 breast augmentation; Hysterectomy; Appendectomy; back sx; hb - Immunization history:: Adult Immunizations up to date. - Social history:: Smoking status: Patient reports the use of cigarette tobacco products, smokes one pack cigarettes per day. - Family history:: not pertinent. Screenin:00 Abuse screen: Denies threats or abuse. Nutritional screening: No deficits noted. bw Tuberculosis screening: No symptoms or risk factors identified. Fall Risk Gait- Weak (10 pts.). Assessment: 12:00 General: Appears uncomfortable, Behavior is calm, cooperative, appropriate for age. bw Pain: Complains of pain in lumbar area, left low back and right low back Pain currently is 8 out of 10 on a pain scale. Pain began April 07, 2020-injury. Neuro: No deficits noted. Level of Consciousness is awake, alert, obeys commands, Oriented to person, place, time, situation, Appropriate for age Wood Technologist are equal bilaterally Weakness lower back pain . Cardiovascular: No deficits noted. Respiratory: No deficits noted. GI: No deficits noted. Musculoskeletal: Reports pain in lower back. Injury Description: bending and twisting. 13:00 Reassessment: Patient appears in no apparent distress at this time. Patient and/or hb family updated on plan of care and expected duration. Pain level reassessed. Patient is alert, oriented x 3, equal unlabored respirations, skin warm/dry/pink. 14:00 Reassessment: Patient appears in no apparent distress at this time. Patient and/or hb family updated on plan of care and expected duration. Pain level reassessed. Patient is alert, oriented x 3, equal unlabored respirations, skin warm/dry/pink. Vital Signs: 09:02 BP 148 / 71; Pulse 77; Resp 16; Temp 97.2; Pulse Ox 100% on R/A; Pain 10/10; ll1 12:00 BP 161 / 95; Pulse 96; Resp 20; Pulse Ox 100% on R/A; Weight 49 kg; Height 5 ft. 5 in. bw (165.10 cm); 13:00 BP 140 / 93; Pulse 68; Resp 18; Pulse Ox 99% on R/A; hb 14:00 BP 148 / 88; Pulse 67; Resp 19; Pulse Ox 99% on R/A; hb 12:00 Body Mass Index 17.98 (49.00 kg, 165.10 cm) ED Course: 08:15 Patient arrived in ED. mr 09:03 Triage completed. hb 09:04 Arm band placed on. hb 11:49 Louise Bell, CUBA is Primary Nurse. 11:54 Jayant Rodriguez MD is Attending Physician. saima 12:00 Patient has correct armband on for positive identification. Allergy band placed. Call light in reach. Pulse ox on. NIBP on. Warm blanket given. 12:00 No provider procedures requiring assistance completed. bw 13:31 CT Lumbar Spine Wo Con In Process Unspecified. EDMS 14:20 Francisco Javier Yanes MD is Referral Physician. saima Administered Medications: 13:26 Drug: Decadron - Dexamethasone 10 mg Route: IVP; Site: left antecubital; bw 13:27 Drug: NS 0.9% 500 ml Route: IV; Rate: bolus; Site: left antecubital; bw 13:27 Drug: TORadol 30 mg Route: IVP; Site: left antecubital; bw 13:27 Drug: Pepcid 20 mg Route: IVP; Site: left antecubital; bw Outcome: 14:25 Discharge ordered by MD. landaverde 14:50 Patient left the ED. Signatures: Dispatcher [employer] EDJayant Clay MD MD cha Rivera, Mary Laura Jones RN RN Argelia Lyons RN RN [facility] Louise Bell RN RN Corrections: (The following items were deleted from the chart) 10:07 09:02 BP 148 / 010; Pulse 77bpm; Resp 16bpm; Pulse Ox 100% RA; Temp 97.2F; Pain 10/10; ll1
[2020-04-19 14:57] VITALS: TEMP 97.2
[2020-04-19 14:59] VITALS: O2SAT 99
[2020-04-19 15:01] VITALS: BP 148/88
--- NOTE | 2020-04-19 16:47 | RAD REPORT ---
EXAM DESCRIPTION: CT - Spine Lumbar Wo Con - 04/19/2020 1:31 pm CLINICAL HISTORY: Radiculopathy. LOWER BACK PAIN COMPARISON: No comparisons TECHNIQUE: Axial noncontrast CT imaging of the lumbar spine was performed with coronal and sagittal re-formatted images. All CT scans are performed using dose optimization technique as appropriate and may include automated exposure control or mA/KV adjustment according to patient size. FINDINGS: The L4 vertebral body demonstrates a mild anterior wedge compression deformity. There is n o evidence canal compromise. No aggressive marrow pattern or malalignment. The bones are diffusely os teopenic. Paraspinal tissues are normal in thickness. No paraspinal abscess or hematoma seen. Prominent posterior disc bulging is seen lower lumbar levels. IMPRESSION: Mild osteoporotic anterior wedge compression deformity is present affecting the L4 verte bral body. The loss of vertebral body height is estimated at 10-15%. No canal compromise is seen.
== END 2020-04-19 14:50 | disposition home or self-care (01) ==
LOC: ER 08:10
DX: M54.30 Sciatica, unspecified side (principal); S32.040A Wedge compression fracture of fourth lumbar vertebra, initial encounter for closed fracture; I10 Essential (primary) hypertension; Z79.82 Long term (current) use of aspirin; Z88.5 Allergy status to narcotic agent; Z98.82 Breast implant status
CPT/HCPCS: 85025; 36415; 80053; 72131; 96375; 96374; 99283; J1100; J7030

== ENCOUNTER 2021-10-29 16:55 | Emergency (ER) | payer OTHER, SELFPAY ==
[2021-10-29] MEDS ORDERED: HYDROCODONE/CHLORPHEN 5 ML/OSYR ONE (17:57)
[2021-10-29] MEDS ORDERED: IBUPROFEN 200 MG TAB PO ONE (17:57)
--- NOTE | 2021-10-29 18:40 | RAD REPORT ---
EXAM DESCRIPTION: Jovana Single View10/29/2021 6:04 pm CLINICAL HISTORY: Cough COMPARISON: 2018 FINDINGS: Lungs are moderately hyperaerated. The lungs appear clear of acute infiltrate. The heart is normal size IMPRESSION: COPD without visualization of an acute abnormality
--- NOTE | 2021-10-29 18:46 | EDPHYS ---
Physician Documentation [facility] Name: Suzie Houser Age: 65 yrs Sex: Female : 1955 Arrival Date: 10/29/2021 Time: 16:58 Bed 16 Private MD: ED Physician Melany Reyes HPI: 10/29 17:35 This 65 yrs old Female presents to ER via Ambulatory with complaints of covid+, cp symptoms worsening. 17:35 The patient or guardian reports cough, that is intermittent, with no sputum, flu cp symptoms, myalgias. 17:35 Onset: The symptoms/episode began/occurred yesterday. Associated signs and symptoms: cp Pertinent negatives: chest pain, diarrhea, fever, vomiting. Severity of symptoms: in the emergency department the symptoms are unchanged despite home interventions. 17:35 Patient reports testing positive for COVID-19 yesterday with symptoms starting 2 days cp ago. Historical: - Allergies: 17:12 Codeine; hb - PMHx: 17:12 aortic aneurysm; High Cholesterol; Hypertension; hb - Immunization history:: Adult Immunizations up to date. - Social history:: Smoking status: Patient denies any tobacco usage or history of. ROS: 17:40 Constitutional: Positive for body aches, chills, Negative for fever, poor PO intake. cp 17:40 Eyes: Negative for injury, pain, redness, and discharge. cp 17:40 Respiratory: Positive for cough, with no reported sputum, Negative for wheezing. 17:40 Cardiovascular: Negative for chest pain, edema, palpitations. cp 17:40 Abdomen/GI: Negative for abdominal pain, nausea, vomiting, and diarrhea. cp 17:40 Neuro: Negative for altered mental status, headache, weakness. 17:40 All other systems are negative. Exam: 17:45 Head/Face: Normocephalic, atraumatic. cp 17:45 Constitutional: The patient appears in no acute distress, alert, awake, non-diaphoretic, non-toxic, well developed, well nourished. 17:45 Eyes: Periorbital structures: appear normal, Conjunctiva: normal, no exudate, no injection, Sclera: no appreciated abnormality, Lids and lashes: appear normal, bilaterally. 17:45 ENT: External ear(s): are unremarkable, Nose: is normal, Mouth: is normal, Posterior pharynx: Airway: no evidence of obstruction, patent, Tonsils: with erythema, no enlargement, no exudate, swelling, is not appreciated, erythema, that is mild, exudate, is not appreciated. 17:45 Neck: ROM/movement: is normal, is supple, without pain, no range of motions limitations, no meningismus, Lymph nodes: no appreciated lymphadenopathy. 17:45 Chest/axilla: Inspection: normal. 17:45 Cardiovascular: Rate: normal, Rhythm: regular. 17:45 Respiratory: the patient does not display signs of respiratory distress, Respirations: normal, no use of accessory muscles, no retractions, labored breathing, is not present, Breath sounds: decreased breath sounds, that are mild, throughout, stridor, is not appreciated, + upper airway congestion. wheezing: is not appreciated. 17:45 Abdomen/GI: Inspection: abdomen appears normal, Palpation: abdomen is soft and non-tender, in all quadrants. 17:45 Skin: no rash present. 17:45 Neuro: Orientation: to person, place \T\ time. Mentation: is normal, Motor: moves all fours, strength is normal, Gait: is steady. Vital Signs: 17:11 BP 123 / 88; Pulse 75; Resp 20; Temp 100.2(O); Pulse Ox 98% on R/A; Weight 45.36 kg; hb Height 5 ft. 5 in. (165.10 cm); Pain 9/10; 19:14 BP 127 / 79; Pulse 71; Resp 16; Temp 99.5; Pulse Ox 98% ; bp 17:11 Body Mass Index 16.64 (45.36 kg, 165.10 cm) hb MDM: 17:19 Patient medically screened. cp 18:00 Differential diagnosis: bronchitis, flu, COVID-19, Pneumonia. cp 18:16 Test interpretation: by ED physician or midlevel provider: chest xray negative for cp focal pneumonia. 18:45 Data reviewed: vital signs, nurses notes, radiologic studies, plain films. cp 18:45 Antibiotic administration: Not indicated, the patient does not have an appreciated cp infiltrate, the patient has a suspected viral illness. Counseling: I had a detailed discussion with the patient and/or guardian regarding: the historical points, exam findings, and any diagnostic results supporting the discharge/admit diagnosis, radiology results, to return to the emergency department if symptoms worsen or persist or if there are any questions or concerns that arise at home. Response to treatment: the patient's symptoms have markedly improved after treatment, and as a result, I will discharge patient. 10/29 17:31 Order name: XRAY Chest (1 view); Complete Time: 18:43 cp 10/29 18:43 Interpretation: Report review. cp Administered Medications: 17:45 Drug: Ibuprofen 600 mg Route: PO; bp 19:14 Follow up: Response: No adverse reaction bp 17:45 Drug: Tussionex Pennkinetic ER (chlorpheniramine-hydrocodone) Suspension 2.5 ml Route: bp PO; 19:14 Follow up: Response: No adverse reaction bp Disposition Summary: 10/29/21 18:45 Discharge Ordered Location: Home cp Problem: new cp Symptoms: are unchanged cp Condition: Stable cp Diagnosis - SARS-associated coronavirus as the cause of diseases classified elsewhere cp Followup: cp - With: Private Physician - When: 2 - 3 days - Reason: Recheck today's complaints Discharge Instructions: - Discharge Summary Sheet cp - Aspirin and Your Heart cp - COVID-19 cp - Things to Know about the COVID-19 Pandemic - [facility] [place] - 10 Things You Can Do to Manage Your COVID-19 Symptoms at Home - [facility] [place] - COVID-19: Quarantine vs. Isolation - [facility] [place] cp - Prevent the Spread of COVID-19 if You Are Sick - [facility] [place] cp Forms: - Medication Reconciliation Form cp - Thank You Letter cp - Antibiotic Education cp - Prescription Opioid Use cp Prescriptions: - Bromfed DM 2-30-10 mg/5 mL Oral syrup - take 10 milliliter by ORAL route every 6 hours; 180 milliliter; Refills: 0, cp Product Selection Permitted - Ibuprofen 600 mg Oral Tablet - take 1 tablet by ORAL route every 8 hours As needed take with food; 30 tablet; cp Refills: 0, Product Selection Permitted - Paxlovid (EUA) 150 mg x 2- 100 mg Oral tablet - take 3 tablet by ORAL route 2 times per day for 5 days per package directions; cp 30 tablet; Refills: 0, Product Selection Permitted Addendum: 10/31/2021 15:28 STAFF ATTESTATION STATEMENT: I was immediately available onsite in the emergency s d2 department for consultation in the care of this patient. I did not see or examine this patient. Melany Reyes MD. Signatures: Dispatcher [employer] EDMS Jayant Kulkarni PA PA cp Baxter, Heather, RN RN Anirudh Zee RN RN bp Dunlop, Stephanie, MD MD sd2 Corrections: (The following items were deleted from the chart) 10/30 16:38 16:36 Differential diagnosis: bronchitis, flu, COVID-19, Pneumonia cp cp 16:39 10/29 17:35 Patient reports testing positive for COVID-19 yesterday. cp cp
--- NOTE | 2021-10-29 18:46 | ER ---
Nurse's Notes [facility] Name: Suzie Houser Age: 65 yrs Sex: Female : 1955 Arrival Date: 10/29/2021 Time: 16:58 Bed 16 Private MD: Diagnosis: SARS-associated coronavirus as the cause of diseases classified elsewhere Presentation: 10/29 17:11 Chief complaint: Cough, congestion, headache, body aches, and fever x 2 days. Tested hb COVID+ yesterday. Coronavirus screen: Client presents with at least one sign or symptom that may indicate coronavirus-19. Standard/surgical mask placed on the client. Provider contacted for isolation considerations. Ebola Screen: No symptoms or risks identified at this time. Risk Assessment: Do you want to hurt yourself or someone else? Patient reports no desire to harm self or others. Onset of symptoms was October 28, 2021. 17:11 Method Of Arrival: Ambulatory hb 17:11 Acuity: PHANI 3 hb 19:14 Initial Sepsis Screen: Does the patient meet any 2 criteria? No. Patient's initial bp sepsis screen is negative. Does the patient have a suspected source of infection? No. Patient's initial sepsis screen is negative. Triage Assessment: 17:15 General: Appears distressed, uncomfortable, ill, Behavior is cooperative, appropriate bp for age, anxious. Pain: Complains of pain in GENERALIZED. EENT: Reports nasal congestion. Neuro: No deficits noted. Cardiovascular: No deficits noted. Respiratory: No deficits noted. GI: No signs and/or symptoms were reported involving the gastrointestinal system. : No signs and/or symptoms were reported regarding the genitourinary system. Derm: No deficits noted. Musculoskeletal: No deficits noted. Historical: - Allergies: 17:12 Codeine; hb - PMHx: 17:12 aortic aneurysm; High Cholesterol; Hypertension; hb - Immunization history:: Adult Immunizations up to date. - Social history:: Smoking status: Patient denies any tobacco usage or history of. Screenin:15 Abuse screen: Denies threats or abuse. Denies injuries from another. Nutritional bp screening: No deficits noted. Tuberculosis screening: No symptoms or risk factors identified. Fall Risk None identified. Assessment: 17:15 General: SEE TRIAGE NOTE. bp 19:13 Reassessment: PT DC HOME AMBULATORY WITH FAMILY. bp Vital Signs: 17:11 BP 123 / 88; Pulse 75; Resp 20; Temp 100.2(O); Pulse Ox 98% on R/A; Weight 45.36 kg; hb Height 5 ft. 5 in. (165.10 cm); Pain 9/10; 19:14 BP 127 / 79; Pulse 71; Resp 16; Temp 99.5; Pulse Ox 98% ; bp 17:11 Body Mass Index 16.64 (45.36 kg, 165.10 cm) hb ED Course: 16:58 Patient arrived in ED. as 16:58 Jayant Kulkarni PA is PHCP. cp 16:59 Melany Reyes MD is Attending Physician. cp 17:12 Triage completed. hb 17:12 Arm band placed on. hb 17:15 Patient has correct armband on for positive identification. Bed in low position. Call bp light in reach. Side rails up X2. 17:22 Anirudh Gutierrez, RN is Primary Nurse. bp 18:05 XRAY Chest (1 view) In Process Unspecified. EDMS 19:13 No provider procedures requiring assistance completed. Patient did not have IV access bp during this emergency room visit. Administered Medications: 17:45 Drug: Ibuprofen 600 mg Route: PO; bp 19:14 Follow up: Response: No adverse reaction bp 17:45 Drug: Tussionex Pennkinetic ER (chlorpheniramine-hydrocodone) Suspension 2.5 ml Route: bp PO; 19:14 Follow up: Response: No adverse reaction bp Medication: 19:13 VIS not applicable for this client. bp Outcome: 18:45 Discharge ordered by MD. cp 19:13 Discharged to home ambulatory, with family. bp 19:13 Condition: stable 19:13 Discharge instructions given to patient, Instructed on discharge instructions, follow up and referral plans. medication usage, Demonstrated understanding of instructions, follow-up care, medications, Prescriptions given X 3. 19:14 Patient left the ED. bp Signatures: Dispatcher [employer] EDMS Emi Knox as Jayant Kulkarni PA PA cp Laura Jones, RN RN hb Anirudh Gutierrez, CUBA RN bp
[2021-10-31 04:34] VITALS: O2SAT 98
[2021-10-31 04:36] VITALS: BP 127/79; TEMP 99.5
== END 2021-10-29 19:14 | disposition home or self-care (01) ==
LOC: ER 16:55
DX: U07.1 COVID-19 (principal)
CPT/HCPCS: 71045; 99283